=== PATIENT | female | born 1970 | race Caucasian/White ===

== ENCOUNTER 2019-01-26 00:01 | Emergency (ER) | payer OTHER ==
[~2019-01-26] VITALS: Ht 147.3 cm; Wt 74.4 kg
[2019-01-26 00:08] VITALS: Ht 147.3 cm; Wt 74.4 kg
[2019-01-26 00:36] VITALS: BP 141/93
== END 2019-01-26 00:36 | disposition home or self-care (01) ==
LOC: ED 00:01
DX: S91.112A Laceration without foreign body of left great toe without damage to nail, initial encounter (principal); I10 Essential (primary) hypertension; Z88.6 Allergy status to analgesic agent; W26.8XXA Contact with other sharp object(s), not elsewhere classified, initial encounter; Y93.89 Activity, other specified; Y92.091 Bathroom in other non-institutional residence as the place of occurrence of the external cause; Y99.8 Other external cause status